=== PATIENT | female | born 1975 | race African-American/Black ===

== ENCOUNTER 2022-10-28 13:13 | Emergency (ER) | payer OTHER, MEDICAID, SELFPAY ==
[2022-10-28 13:15] VITALS: BP 161/99; PULSE 67; RESP 18; TEMP 36.8; O2SAT 99
--- NOTE | 2022-10-28 13:46 | PC.NURSE ---
Dr. Cheung at bedside to assess pt.
--- NOTE | 2022-10-28 14:17 | ED.ANIMALBIT ---
HPI - Animal Bite General Chief Complaint: Animal Bite Stated Complaint: dog bite Time Seen by Provider: 10/28/22 13:34 History of Present Illness HPI narrative: This is a 47-year-old female, with history of dog bite to the left foreleg 23 days ago, who presents to the emergency department complaining of increasing swelling and drainage of purulent fluid from one of her wounds. She states she is followed by wound care, with her most recent evaluation 1 week ago. 2 to 3 days ago, she noted increased swelling and today and noticed drainage of pus. She states she has persistent left foreleg weakness and numbness since the bite that has not changed. Related Data Allergies Allergy/AdvReac Type Severity Reaction Status Date / Time No Known Allergies Allergy Verified 10/28/22 14:21 Review of Systems Review of Systems: CONSTITUTIONAL: Denies fever, chills, or sweats. CARDIOVASCULAR: Denies chest pain, palpitations, or edema. RESPIRATORY: Denies cough or dyspnea. GASTROINTESTINAL: Denies abdominal pain, nausea, vomiting, or diarrhea. GENITOURINARY: Denies dysuria or hematuria. SKIN: Denies rash or itching. MUSCULOSKELETAL: Left leg swelling and drainage of purulent fluid, animal bite of the left foreleg denies back pain, joint pain, or myalgia. NEUROLOGIC: Numbness, paresthesias and weakness of the left foreleg denies headache, dizziness PSYCHIATRIC: Denies anxiety or depression. PMFSH Past Medical History Medical History HTN (hypertension) Surgical History Surgical History No significant past surgical history Social History Social History (Updated 10/28/22 @ 20:03 by Samuel Cheung MD) Smoking status: Former smoker Alcohol intake: never Substance use: never Exam Narrative: GENERAL: Well-developed, well-nourished, and in no acute distress. HEAD: Normocephalic, atraumatic. EYES: PERRLA and EOMI. CHEST: Clear to auscultation. No respiratory distress. No wheezes rales or rhonchi HEART: Regular rate and rhythm. No murmur heard. Normal peripheral pulses. ABDOMEN: Soft, nontender, nondistended, normal active bowel sounds. EXTREMITIES: 2 approximately 1 x 2 cm wounds are noted to the lateral and posterior aspect of the left foreleg with healthy appearing granulation tissue. The posterior wound however is draining purulent material. There is induration and warmth to palpation between the wounds and extending to the posterior aspect of the foreleg approximately 10 cm distal to the knee. Normal range of motion. No edema. SKIN: Warm, dry, no rash. NEURO: No focal deficits. Alert and oriented x3. PSYCH: Normal mood and affect. Course Course Emergency Course: 14:22 - Bedside ultrasound performed by me shows cobblestoning consistent with cellulitis but no focal fluid collection concerning for abscess. The patient's posterior wound is draining purulent material. Will discharge with clindamycin and recommendation to follow-up with wound care. Discussed return and emergency precautions including signs/symptoms of neurovascular compromise and antibiotic failure. Vital Signs Vital signs: Vital Signs Temperature 98.3 F 10/28/22 13:15 Pulse Rate 67 10/28/22 13:15 Respiratory Rate 18 10/28/22 13:15 Blood Pressure 161/99 H 10/28/22 13:15 Pulse Oximetry 99 10/28/22 13:15 Oxygen Delivery Room Air 10/28/22 13:15 Temperature 98.3 F 10/28/22 13:15 Pulse Rate 67 10/28/22 13:15 Respiratory Rate 18 10/28/22 13:15 Blood Pressure 161/99 H 10/28/22 13:15 Pulse Oximetry 99 10/28/22 13:15 Oxygen Delivery Room Air 10/28/22 13:15 MDM - Animal Bite MDM Narrative Medical decision making narrative: Plan: Bedside ultrasound, wound care follow-up Differential Diagnosis Differential diagnosis: Likely dog bite and other (Cellulitis, abscess, other) Discharge Plan Discha
== END 2022-10-28 14:35 | disposition home or self-care (01) ==
PROVIDERS: Emergency Provider Preventive Medicine Aerospace Medicine
DX: S81.852A Open bite, left lower leg, initial encounter (principal); L03.116 Cellulitis of left lower limb; W54.0XXA Bitten by dog, initial encounter
CPT/HCPCS: 99283

== ENCOUNTER 2022-11-03 13:27 | Emergency (ER) | payer OTHER, MEDICAID, SELFPAY ==
[2022-11-03 13:36] VITALS: BP 110/71; PULSE 75; RESP 18; TEMP 36.2; O2SAT 100
[2022-11-03 13:55] VITALS: BP 116/82; PULSE 66; RESP 16; O2SAT 99
[2022-11-03 13:56] VITALS: PULSE 62
--- NOTE | 2022-11-03 14:06 | ECG_ITS ---
Measurements Intervals [place] Rate: 58 P: 17 PA: 147 QRS: 9 QRSD: 108 T: 7 QT: 433 QTc: 426 Interpretive Statements SINUS BRADYCARDIA OTHERWISE NORMAL ECG NO PREVIOUS ECG AVAILABLE FOR COMPARISON Electronically Signed On 11-04-2022 12:49:48 CDT by Lavon Hamm M.D.
[2022-11-03 14:23] LABS: Glucose Point of Care 90 mg/dl (65-105)
--- NOTE | 2022-11-03 14:43 | ED.DIZZY ---
HPI - Dizziness General Chief Complaint: Dizziness Stated Complaint: lightheaded Time Seen by Provider: 11/03/22 14:31 History of Present Illness HPI Narrative: Patient is a 47-year-old female with history of chronic wounds to the left lower extremity after a dog bite last month Here after syncopal episode which occurred while at the wound clinic. Patient states that she did not eat or drink anything this morning prior to going to the Wound Clinic. At the wound clinic they performed I&D at the site of a concern for abscess and performed packing of the wound. During this procedure she notes that they kept hitting the nerve and she started feeling flushed and nauseous. She then lost consciousness and lost bowel and bladder function. She denies any head trauma. She returned to baseline and was discharged ambulatory to home by the wound clinic. On the way home she started feeling lightheaded again and was brought into the emergency department by family. She currently notes that she feels hungry at this time but does not feel lightheaded. No associated chest pain or shortness of breath with the episode of syncope. No prior history of PE or DVT. No recent flights or long car rides. No prior cardiac history. She does note that she was on antibiotics which finished yesterday, is unsure of which antibiotic. She is currently being managed by the Wound Clinic in [place]. Related Data Allergies Allergy/AdvReac Type Severity Reaction Status Date / Time No Known Allergies Allergy Verified 11/03/22 14:00 Review of Systems Review of Systems: CONSTITUTIONAL: Denies fever, chills, or sweats. EYES: Denies visual changes, redness, or discharge. ENT: Denies rhinorrhea, congestion, sore throat, or otalgia. CARDIOVASCULAR: Denies chest pain, palpitations, or edema. Had a syncopal episode today. RESPIRATORY: Denies cough or dyspnea. GASTROINTESTINAL: Denies abdominal pain, nausea, vomiting, or diarrhea. GENITOURINARY: Denies dysuria or hematuria. SKIN: Denies rash or itching. Chronic wound of left lower extremity. MUSCULOSKELETAL: Denies back pain, joint pain, or myalgia. NEUROLOGIC: Denies headache, numbness, or weakness. PSYCHIATRIC: Denies anxiety or depression. PENDING SALE TO [facility] Past Medical History Medical History HTN (hypertension) Surgical History Surgical History No significant past surgical history Social History Social History (Updated 10/28/22 @ 20:03 by Samuel Cheung MD) Smoking status: Former smoker Alcohol intake: never Substance use: never Exam Narrative: GENERAL: Well-appearing, well-nourished, and in no acute distress. HEAD: Normocephalic, atraumatic. EYES: PERRLA and EOMI. ENT: Nares clear, no rhinorrhea or epistaxis. Mucous membranes moist. NECK: Supple. CHEST: Clear to auscultation. No respiratory distress. HEART: Regular rate and rhythm. No murmur heard. Normal peripheral pulses. ABDOMEN: Soft, nontender, nondistended, normal active bowel sounds. EXTREMITIES: Normal range of motion. No edema. SKIN: Warm, dry, no rash. Patient has 2 1 cm chronic appearing wounds on the left calf. The posterior wound appears to have packing in place. No surrounding erythema suggestive of cellulitis. NEURO: No focal deficits. Alert and oriented x3. PSYCH: Normal mood and affect. Course Course Emergency Course: Chart review performed, after being lightheaded at 1 doctor. She is being treated for a dog bite from her left lower extremity. Triage vitals within normal limits. POC glucose was 90. Patient seen and evaluated, no acute distress. She is back to baseline with no focal neurological deficits appreciated. Episode today consistent with a vasovagal syncope which occurred during a procedure at the wound clinic. Given her chronic wound I do think it is worthwhile to do a CBC and CRP
[2022-11-03] MEDS: SODIUM CHLORIDE 0.9% IV 1,000 ML 999 ML IV CONT (15:11)
[2022-11-03 15:12] VITALS: BP 119/79; PULSE 56; RESP 16; O2SAT 99
[2022-11-03 15:14] LABS: Basophils Percent Auto 0.5 % (0.2-1.2); Eosinophils Percent Auto 0.7 % (0-4.4); Hematocrit 34.8 % (37.0-47.0); Immature Granulocyte Absolute 0.02 K/mm3 (0.00-0.031); Immature Granulocyte Percent A 0.3 % (0-0.5); Lymphocytes Absolute Auto 1.29 K/mm3 (0.9-3.2); Mean Corpuscular HGB Conc 31.6 g/dl (32-36); Mean Corpuscular Volume 85.3 fl (80-100); Mean Platelet Volume 10.9 fl (7.4-10.4); Monocytes Absolute Auto 0.4 K/mm3 (0.1-0.6); Neutrophils Absolute Auto 4.3 K/mm3 (1.3-6.7); Neutrophils Percent Auto 70.5 % (45.5-73.1); Platelet Count Result 240 k/mm3 (150-375); Red Blood Count 4.08 M/mm3 (4.2-5.4); Red Cell Distribution Width 20.7 % (11.5-14.5); White Blood Count 6.1 K/mm3 (4.5-10.0)
[2022-11-03 15:25] LABS: Alanine Aminotransferase 30 U/L (6-35); Albumin Level 3.5 g/dL (3.5-5.1); Alkaline Phosphatase 83 U/L (38-126); Anion Gap 1 mmol/L (8-16); Aspartate Amino Transferase 30 U/L (14-36); Bilirubin,Total 0.3 mg/dL (0.2-1.3); Blood Urea Nitrogen 13 mg/dL (7-17); CRP < 0.5 mg/dL (<1.0); Calcium 8.5 mg/dL (8.4-10.2); Carbon Dioxide 30 mmol/L (22-30); Chloride 103 mmol/L (98-107); Estimated CRCL calculation 103 ml/min; Estimated Glomerular Filt Rate > 60; Glucose 99 mg/dL (65-110); Potassium 3.9 mmol/L (3.4-5.0); Sodium 134 mmol/L (137-145)
[2022-11-03 15:28] LABS: Platelet Estimate Adequate (Adequate); Poikilocytosis 1+ (NORMAL)
[2022-11-03 15:29] LABS: Schistocytes Rare (NORMAL)
[2022-11-03 16:29] VITALS: BP 142/84; PULSE 66; RESP 20; O2SAT 100
== END 2022-11-03 16:31 | disposition home or self-care (01) ==
PROVIDERS: Emergency Provider Student in an Organized Health Care Education/Training Program
DX: R55 Syncope and collapse (principal); I10 Essential (primary) hypertension; Z87.891 Personal history of nicotine dependence
CPT/HCPCS: 36415; 80053; 82948; 85025; 86140; 93005; 96360; 99283; J7030

== ENCOUNTER 2023-02-12 10:16 | Emergency (ER) | payer OTHER, SELFPAY ==
[2023-02-12 10:17] VITALS: BP 156/103; PULSE 72; RESP 14; TEMP 36.6; O2SAT 99
[2023-02-12 10:29] VITALS: BP 129/83; PULSE 67; RESP 18; O2SAT 98
[2023-02-12 11:17] VITALS: BP 125/80; PULSE 62; RESP 18; O2SAT 100
--- NOTE | 2023-02-12 11:26 | ED.EAR ---
HPI - Ear Problem General Chief complaint: Ear Stated complaint: cant hear, back pain Time Seen by Provider: 02/12/23 10:37 Source: patient Mode of arrival: ambulatory Limitations: no limitations History of Present Illness HPI Narrative: This is a 47 year old female that presents to the ER for multiple complaints. Reports bilateral ear congestion. Reports right worse than left. Also reports acute on chronic low back pain. No recent injury or trauma. Worse with movement and relieved with rest. She has been taking over the counter anti-inflammatories with little relief. Has not taken any pain medication yet today. Denies fever, cough, rhinorrhea, numbness or weakness. Related Data Allergies Allergy/AdvReac Type Severity Reaction Status Date / Time No Known Allergies Allergy Verified 11/03/22 14:00 Review of Systems Review of Systems: CONSTITUTIONAL: Denies fever ENT: Reports congestion, and otalgia. RESPIRATORY: Denies cough SKIN: Denies rash MUSCULOSKELETAL: Reports back pain, joint pain, and myalgia. NEUROLOGIC: Denies numbness, or weakness. All systems reviewed & are unremarkable except as noted in HPI and below PMFSH Past Medical History Medical History (Updated 02/12/23 @ 13:14 by Angelica Shelley PA-C) HTN (hypertension) Social History Social History (Updated 10/28/22 @ 20:03 by Samuel Cheung MD) Smoking status: Former smoker Alcohol intake: never Substance use: never Exam Narrative: GENERAL: Well-appearing, well-nourished, and in no acute distress. HEAD: Normocephalic, atraumatic. EYES: EOMI. ENT: Nares clear, no rhinorrhea or epistaxis. Mucous membranes moist. Oropharynx without tonsillar hypertrophy exudate or other lesions. Left TM pearly yung non-bulging, left external auditory canal is normal. Right sided cerumen impaction NECK: Supple. No adenopathy or masses. CHEST: Clear to auscultation. No respiratory distress. No wheezes rales or rhonchi HEART: Regular rate and rhythm. No murmur heard. Normal peripheral pulses. BACK: No midline spinal tenderness EXTREMITIES: Normal range of motion. No edema. Strength equal in bilateral lower extremities (5/5) SKIN: Warm, dry, no rash. NEURO: No focal deficits. Alert and oriented x3. PSYCH: Normal mood and affect Course Course Emergency Course: Patient agrees with plan of care Vital Signs Vital signs: Vital Signs Temperature 97.9 F 02/12/23 10:17 Pulse Rate 72 02/12/23 10:17 Respiratory Rate 14 02/12/23 10:17 Blood Pressure 156/103 H 02/12/23 10:17 Pulse Oximetry 99 02/12/23 10:17 Oxygen Delivery Room Air 02/12/23 10:17 Temperature 97.9 F 02/12/23 10:17 Pulse Rate 62 02/12/23 11:17 Respiratory Rate 18 02/12/23 11:17 Blood Pressure 125/80 02/12/23 11:17 Pulse Oximetry 100 02/12/23 11:17 Oxygen Delivery Room Air 02/12/23 10:17 Procedures Ear Wax Removal Right Ear: Ear Wax Removal Date: 02/12/23 Ear Wax Removal Time: 13:31 Results: Re-examined: cerumen removed completely TM Examination: TM(s) intact, normal appearance Ear Canal Exam: atraumatic Patient Tolerated Procedure: well and no complications Complications: no problems Technique: ear canal irrigated Medical Decision Making MDM Narrative Medical decision making narrative: Patient presents to the emergency department with multiple complaints. Reporting congestion and decreased hearing. Also reporting acute on chronic low back pain. She is afebrile and nontoxic-appearing. Noted to have a right cerumen impaction. This was successfully removed. Post removal external auditory canal and TM are normal. Patient reports improvement in her symptoms. No recent injuries or trauma. Patient is neurologically intact. Given a dose of Toradol and Tylenol with improvement in her back pain. Instructed to have continued follow-up with her primary provider. She was given warnings to retur
[2023-02-12] MEDS: ACETAMINOPHEN 500 MG TABLET 1000 MG PO (12:01)
[2023-02-12] MEDS: KETOROLAC 30 MG/ML VIAL (*BKC) IM (12:02)
[2023-02-12 13:50] VITALS: BP 134/72; PULSE 70; RESP 18; TEMP 36.8; O2SAT 100
== END 2023-02-12 14:09 | disposition home or self-care (01) ==
PROVIDERS: Emergency Provider Physician Assistant
DX: H61.21 Impacted cerumen, right ear (principal); M54.50 Low back pain, unspecified; G89.29 Other chronic pain; I10 Essential (primary) hypertension; Z87.891 Personal history of nicotine dependence
CPT/HCPCS: 69209; 96372; 99283; A9270; J1885